=== PATIENT | male | born 1990 | race Caucasian/White ===

== ENCOUNTER → 2024-07-28 | Outpatient (CLI) | payer OTHER, SELFPAY ==
--- NOTE | 2024-07-28 | SUBM_PTH ---
PATIENT: CARLOS NGUYEN LOC: [facility] U#:[id number] AGE/SX: 34/M ROOM: RE07/28/[address]: Dr. Osiel Dickinson MD : 1990 BED: DIS: 07/28/2024 SPEC #: [id number] RECD: 07/28/24 15:10 STATUS: DIMITRI CRISTIANA #: [id number] LEONARDO: 07/28/24 00:[address]: Osiel Dickinson DEPT: SURGICAL PATHOLOGY RECD BY: Maury Atkins ENTERED: 07/29/24 07:55 SP TYPE: SUBMAN GL OTHR DR: Dr. Obey Man MD Tissues: Salivary gland, NOS Procedures: Surgery Specimen Level V HEADER OPERATION: Left submandibular gland excision PRE-OP DIAGNOSIS: Chronic sialadenitis, sialolithiasis TISSUE SUBMITTED: Left submandibular gland MICROSCOPIC DIAGNOSIS Left submandibular gland, excision: Major salivary gland with diffused moderate chronic inflammation. A stone (gross only). 07/30/2024 MICROSCOPIC DESCRIPTION Slides are reviewed. GROSS DESCRIPTION Received in fixative is one container labeled with the patient's name and designated Left submandibular gland. The specimen consists of an irregular piece of gruber glandular tissue measuring 3.7 x 3.5 x 2.0cm and weighs 7.8gm. Serial sections reveal a stone measuring 1.0 x 0.5 x 0.3cm. No mass lesion is identified. The entire specimen is submitted from one end to another end in seven cassettes. 07/29/2024 TC:3 CPT:18984
== END | disposition home or self-care (01) ==
PROVIDERS: Referring Provider Otolaryngology; Visit Provider Otolaryngology
DX: K11.23 Chronic sialoadenitis (principal); K11.5 Sialolithiasis
CPT/HCPCS: 88307